=== PATIENT | female | born 2000 | race Caucasian/White ===

== ENCOUNTER 2024-11-20 00:14 | Emergency (ER) | payer OTHER ==
[2024-11-20 00:36] VITALS: RESP 16; TEMP 97.2
--- NOTE | 2024-11-20 00:49 | ERPHSYRPT ---
- History of Present Illness Time Seen by Provider: 11/20/24 00:36 Source: patient Exam Limitations: no limitations Patient Subjective Stated Complaint: pt states that she has vaginal discharge and vaginal itching Triage Nursing Assessment: pt ambulated into the er; pt is axo x4; c/o vaginal discharge; pt states vaginal itching; pt states pain with intercourse; skin PDW; no respiratory distress present; vitals wnl Physician History: 24yo f presents via EMS for vaginal discharge and discomfort x 4d. Pt reports she has noticed clear discharge that she reports has an abnormal odor. Pt denies any white or frothy discharge. Pt denies any new sexual partners, is monogamous and does not regularly use condoms. Pt also endorses some discomfort during intercourse that she reports has been ongoing for the past several years. Pt reports her LMP was 4wks ago. Pt denies any abdominal cramping, abdominal pain, n/v/d. Timing/Duration: day(s) (4) Activites at Onset: none Pain Radiation: none Severity of Pain-Max: none Severity of Pain-Current: none Prior abdominal problems: none Sexual intercourse history: single partner, pain with intercourse, unprotected intercourse Associated Symptoms: vaginal discharge, No abdominal pain, No fever, No chills, No nausea, No vomiting, No dysuria, No urinary frequency, No Allergies/Adverse Reactions: latex Allergy (Verified 11/20/24 00:23) Home Medications: Norgestimate-Ethinyl Estradiol [Sprintec 28 Day Tablet] 1 each PO DAILY 11/20/24 [History] Hx Tetanus, Diphtheria Vaccination/Date Given: No Hx Influenza Vaccination/Date Given: No Hx Pneumococcal Vaccination/Date Given: No Travel Risk - International Travel Have you traveled outside of the country in past 3 weeks: No - Emerging Infectious Disease Are you exhibiting symptoms associated with any current EIDs: No - Review of Systems Constitutional: No Symptoms Cardiac: No Symptoms Abdominal/Gastrointestinal: No Symptoms Genitourinary Symptoms: Vaginal Discharge, Vaginal Itching, No Dysuria, No Frequency, No Hematuria, No Urgency, No Flank Pain, No , No Vaginal Bleeding - Past Medical History Pertinent Past Medical History: Yes Neurological History: No Pertinent History ENT History: No Pertinent History Cardiac History: No Pertinent History Respiratory History: No Pertinent History Endocrine Medical History: No Pertinent History Musculoskeletal History: No Pertinent History GI Medical History: No Pertinent History History: No Pertinent History Psycho-Social History: Anxiety, Depression Female Reproductive Disorders: No Pertinent History - Past Surgical History Past Surgical History: No - Female History Hx Last Menstrual Period: 10/24/24 Hx Now: No - Social History Smoking Status: Never smoker Exposure to second hand smoke: Yes Drug Use: none - Social Determinants of Health Will the patient participate in the screening: Yes Do you worry about a steady place to live?: No Do you have any problems with any of the following?: No known problems In the past 12 months,have you had to go without utilities?: No Transportation Issues: No Has anyone in your support network made you feel unsafe?: No Have you or anyone in your house had to go without enough: No - Nursing Vital Signs Nursing Vital Signs: Initial Vital Signs Temperature 97.2 F 11/20/24 00:25 Pulse Rate 81 11/20/24 00:25 Respiratory Rate 16 11/20/24 00:25 Blood Pressure 115/78 11/20/24 00:25 O2 Sat by Pulse Oximetry 99 11/20/24 00:25 Pain Scale Pain Intensity 0 - Physical Exam General Appearance: no apparent distress, alert Respiratory Exam: airway intact, No respiratory distress Cardiovascular Exam: regular rate/rhythm, normal peripheral pulses Gastrointestinal/Abdomen Exam: soft, No tenderness, No distention Pelvic Exam: normal external exam, other (minimal clear discharge in posterior fornix, cervical oz non-erythematous, no active bleeding), No mass, No cervical motion tenderness, No vaginal bleeding, No uterine tenderness, No vaginal discharge SpO2 Interpretation: normal SpO2: 99 O2 Delivery: Room Air Ordered Tests: Active Orders 24 hr Category Date Time Status HCG QUALITATIVE, URINE Stat Lab 11/20/24 00:59 Completed UA W/RFX UR CULTURE Stat Lab 11/20/24 00:59 Completed Lab/Rad Data: Laboratory Results 11/20/24 11/20/24 11/20/24 Range/Units 01:05 01:05 00:59 Urine Color (Yellow) Urine Appearance (Clear) Urine pH (4.6-8.0) Ur Specific [place] (1.005-1.030) Urine Protein (Negative) Urine Glucose (UA) (Negative) mg/dL Urine Ketones (Negative) Urine Blood (Negative) Urine Nitrite (Negative) Urine Bilirubin (Negative) Urine Urobilinogen (0.2) mg/dL Ur Leukocyte Esterase (Negative) U Hyaline Cast (Auto) (0-2) /LPF Urine Microscopic RBC (0-5) /HPF Urine Microscopic WBC (0-5) /HPF Ur Epithelial Cells (None Seen) /HPF Urine Bacteria (None Seen) /HPF Urine Culture Reflexed (NO) Urine HCG, Qual NEGATIVE (NEGATIVE) Vaginal Rosalee Group NOT DETECTED (NEGATIVE) Rosalee species NOT DETECTED (NEGATIVE) Chlamydia DNA Probe NOT DETECTED (NEGATIVE) N.gonorrhoeae DNA Probe NOT DETECTED (NEGATIVE) T. vaginalis (PCR) NOT DETECTED (NEGATIVE) Bact vaginosis (PCR) POSITIVE A (NEGATIVE) 11/20/24 Range/Units 00:59 Urine Color Yellow (Yellow) Urine Appearance Clear (Clear) Urine pH 6.5 (4.6-8.0) Ur Specific [place] >=1.030 A (1.005-1.030) Urine Protein Negative (Negative) Urine Glucose (UA) Negative (Negative) mg/dL Urine Ketones Negative (Negative) Urine Blood Negative (Negative) Urine Nitrite Negative (Negative) Urine Bilirubin Negative (Negative) Urine Urobilinogen 1.0 A (0.2) mg/dL Ur Leukocyte Esterase Negative (Negative) U Hyaline Cast (Auto) NONE SEEN (0-2) /LPF Urine Microscopic RBC 0-2 (0-5) /HPF Urine Microscopic WBC 0-2 (0-5) /HPF Ur Epithelial Cells None Seen (None Seen) /HPF Urine Bacteria Rare A (None Seen) /HPF Urine Culture Reflexed NO (NO) Urine HCG, Qual (NEGATIVE) Vaginal Rosalee Group (NEGATIVE) Rosalee species (NEGATIVE) Chlamydia DNA Probe (NEGATIVE) N.gonorrhoeae DNA Probe (NEGATIVE) T. vaginalis (PCR) (NEGATIVE) Bact vaginosis (PCR) (NEGATIVE) - Progress Progress: unchanged Air Movement: good Progress Note: 11/20/24 02:47 + for BV negative STI screening otherwise will start 500mg flagyl in ED continue 7 day course of metronidazole twice daily follow up w/ your PCP in 1-2wks if symptoms persist return to ED if: develop significant vaginal or abdominal pain, develop heavy vaginal bleeding, develop exquisite pain w/ intercourse, develop fevers that do not resolve w/ tylenol/ibuprofen Blood Culture(s) Obtained: No Antibiotics given: Yes Counseled pt/family regarding: lab results, need for follow-up Medical Desision Making - Diagnostic Testing Diagnostic test were ordered, analyzed, and reviewed by me: Yes Radiological Interpretation: Reviewed by me - Risk of complications Minimal Risk: Minimal risk of morbidity - Departure Departure Disposition: Home Clinical Impression: Vaginal discharge, Bacterial vaginosis Condition: Stable Critical Care Time: No Referrals: DOCTOR,NO FAMILY [Primary Care Provider] - Follow up/PCP as directed Instructions: Deciding Where to Go for Care Additional Instructions: continue 7 day course of metronidazole twice daily follow up w/ your PCP in 1-2wks if symptoms persist return to ED if: develop significant vaginal or abdominal pain, develop heavy vaginal bleeding, develop exquisite pain w/ intercourse, develop fevers that do not resolve w/ tylenol/ibuprofen Prescriptions: Metronidazole 500 mg [Flagyl 500 MG] 500 mg PO BID 7 Days #14 tablet
[2024-11-20 01:05] LABS: HCG URINE TEST NEGATIVE (NEGATIVE)
[2024-11-20 01:07] LABS: Appearance Clear (Clear); Bacteria Rare /HPF (None Seen); Bilirubin Negative (Negative); Blood Negative (Negative); Epithelial Cells None Seen /HPF (None Seen); Glucose, Urine Negative (Negative); Hyaline Casts NONE SEEN /LPF (0-2); Ketones Negative (Negative); Leukocyte Esterase Negative (Negative); Nitrite Negative (Negative); Ph 6.5 (4.6-8.0); Protein,Urine Dip Negative (Negative); RBC 0-2 /HPF (0-5); Specific Gravity >=1.030 (1.005-1.030); WBC 0-2 /HPF (0-5)
[2024-11-20 02:04] LABS: Candida Group NOT DETECTED (NEGATIVE); Candida glab/krus NOT DETECTED (NEGATIVE)
[2024-11-20 02:19] VITALS: O2SAT 99
[2024-11-20 02:36] LABS: CHLAMYDIA DNA NOT DETECTED (NEGATIVE); GC DNA Probe NOT DETECTED (NEGATIVE)
[2024-11-20] MEDS ORDERED: Flagyl 500 MG ONE (02:48)
[2024-11-20] MEDS: Flagyl 500 MG PO ONE (02:49)
[2024-11-20 02:56] VITALS: BP 110/75; PULSE 86
== END 2024-11-20 02:55 | disposition home or self-care (01) ==
LOC: ED 00:14
DX: N76.0 Acute vaginitis (principal)
CPT/HCPCS: 81001; 81025; 87481; 87491; 87591; 87661; 87801; 99283; A9270-GY